=== PATIENT | male | born 1970 | race Caucasian/White ===

== ENCOUNTER 2022-06-28 13:06 | Inpatient (IN) | payer OTHER ==
[2022-06-28 14:00] VITALS: BMI 31.0
[2022-06-28] MEDS ORDERED: IBUPROFEN 600 MG TABLET (FP) PO PRN (14:39)
[2022-06-28] MEDS ORDERED: NALOXONE HCL (KLOXXADO) 8 MG SPRAY NS PRN (14:39)
[2022-06-28] MEDS ORDERED: IBUPROFEN 400 MG TABLET (FP) PO PRN (14:39)
[2022-06-28] MEDS ORDERED: MAGNESIUM HYDROX 2400MG/30ML ORAL SUSPENSION 30 ML CUP PO PRN (14:39)
[2022-06-28] MEDS ORDERED: LOPERAMIDE HCL 2 MG CAPSULE PO PRN (14:39)
[2022-06-28] MEDS ORDERED: BENZOCAINE/MENTHOL (CHLORASEPTIC ) LOZENGE MM PRN (14:39)
[2022-06-28] MEDS ORDERED: ACETAMINOPHEN 325 MG TABLET (FP) PO PRN ×2 (14:39)
[2022-06-28] MEDS ORDERED: MAG HYDROX/AL HYDROX/SIMETH 30 ML UNIT-DOSE CUP PO PRN (14:39)
[2022-06-28] MEDS ORDERED: ONDANSETRON *ODT* 4 MG TABLET SL PRN (14:39)
[2022-06-28] MEDS ORDERED: MAGNESIUM CITRATE 300 ML BOTTLE PO PRN (14:39)
[2022-06-28] MEDS ORDERED: DICYCLOMINE HCL 10 MG CAPSULE PO PRN (14:39)
[2022-06-28] MEDS: FOLIC ACID 1 MG TABLET (FP) PO SCH (15:18)
[2022-06-28] MEDS: METHOCARBAMOL 500 MG TABLET PO PRN ×2 (15:18→22:26)
[2022-06-28] MEDS: PRENATAL VITAMINS W/ FOLIC ACID TABLET (FP) PO SCH (15:19)
[2022-06-28] MEDS: NICOTINE 14 MG/24 HOURS TOPICAL PATCH TD SCH (15:19)
[2022-06-28] MEDS: diazePAM 5 MG TABLET PO SCH ×2 (17:37→22:26)
[2022-06-28] MEDS: metFORMIN HCL 500 MG TABLET (FP) PO SCH (17:37)
[2022-06-28] MEDS: BISMUTH SUBSALICYLATE 524 MG/30 ML PO PRN (17:40)
[2022-06-28] MEDS: diazePAM 5 MG TABLET PO PRN (20:34)
[2022-06-28] MEDS ORDERED: MELATONIN 5 MG TABLETS PO SCH (22:00)
[2022-06-28] MEDS: THIAMINE HCL 100 MG TABLET (FP) PO SCH (22:26)
[2022-06-29] MEDS: diazePAM 5 MG TABLET PO SCH ×4 (05:17→22:31)
[2022-06-29] MEDS: metFORMIN HCL 500 MG TABLET (FP) PO SCH ×2 (06:07→17:26)
[2022-06-29] MEDS: diazePAM 5 MG TABLET PO PRN ×3 (08:51→20:13)
[2022-06-29] MEDS: FOLIC ACID 1 MG TABLET (FP) PO SCH (10:09)
[2022-06-29] MEDS: PRENATAL VITAMINS W/ FOLIC ACID TABLET (FP) PO SCH (10:09)
[2022-06-29] MEDS: NICOTINE 10 MG CARTRIDGE (INHALER) IH PRN ×2 (10:10→17:29)
[2022-06-29] MEDS: NICOTINE 14 MG/24 HOURS TOPICAL PATCH TD SCH (10:10)
[2022-06-29 10:54] LABS: HEMATOCRIT 45.9 % (35.4-49); HEMOGLOBIN 15.7 GM/dL (11.7-16.9); MCH 33.1 pg (25.7-33.7); MCHC 34.2 g/dl (32.0-35.9); MEAN CELL VOLUME 96.8 fl (80-96); MEAN PLT VOLUME 7.4 fl (7.5-11.1); PLATELET COUNT 218 10^3/uL (134-434); RBC 4.74 M/mm3 (4.00-5.60); RDW 15.8 % (11.9-15.9); WHITE BLOOD COUNT 6.7 K/mm3 (4.0-10.0)
[2022-06-29 11:58] LABS: ALBUMIN 3.2 g/dl (3.4-5.0); BLOOD UREA NITROGEN 10.6 mg/dL (7-18)
[2022-06-29 12:01] LABS: CREATININE 0.7 mg/dL (0.55-1.3)
[2022-06-29 12:02] LABS: TOT PROT 6.6 g/dl (6.4-8.2)
[2022-06-29 12:03] LABS: BILIRUBIN,TOTAL 0.6 mg/dL (0.2-1)
[2022-06-29] MEDS: SUVOREXANT 10 MG TABLET PO PRN (22:29)
[2022-06-29] MEDS: METHOCARBAMOL 500 MG TABLET PO PRN (22:31)
[2022-06-29] MEDS: THIAMINE HCL 100 MG TABLET (FP) PO SCH (22:31)
[2022-06-30] MEDS: diazePAM 5 MG TABLET PO SCH ×3 (05:17→23:09)
[2022-06-30] MEDS: metFORMIN HCL 500 MG TABLET (FP) PO SCH ×2 (06:36→18:00)
[2022-06-30] MEDS: PRENATAL VITAMINS W/ FOLIC ACID TABLET (FP) PO SCH (10:05)
[2022-06-30] MEDS: diazePAM 5 MG TABLET PO PRN ×2 (10:05→18:02)
[2022-06-30] MEDS: METHOCARBAMOL 500 MG TABLET PO PRN (10:05)
[2022-06-30] MEDS: NICOTINE 14 MG/24 HOURS TOPICAL PATCH TD SCH (10:05)
[2022-06-30] MEDS: FOLIC ACID 1 MG TABLET (FP) PO SCH (10:05)
[2022-06-30] MEDS ORDERED: diphenhydrAMINE HCL 25 MG CAPSULE (FP) PO PRN (13:48)
[2022-06-30] MEDS ORDERED: diphenhydrAMINE HCL 25 MG CAPSULE (FP) PO ONE (14:30)
[2022-06-30] MEDS: THIAMINE HCL 100 MG TABLET (FP) PO SCH (23:09)
[2022-07-01] MEDS: diazePAM 5 MG TABLET PO SCH ×2 (05:49→17:29)
[2022-07-01] MEDS: metFORMIN HCL 500 MG TABLET (FP) PO SCH ×2 (06:55→17:28)
[2022-07-01] MEDS: NICOTINE 14 MG/24 HOURS TOPICAL PATCH TD SCH (10:28)
[2022-07-01] MEDS: diazePAM 5 MG TABLET PO PRN (10:29)
[2022-07-01] MEDS: FOLIC ACID 1 MG TABLET (FP) PO SCH (10:29)
[2022-07-01] MEDS: PRENATAL VITAMINS W/ FOLIC ACID TABLET (FP) PO SCH (10:29)
[2022-07-01] MEDS: NICOTINE 10 MG CARTRIDGE (INHALER) IH PRN (17:30)
[2022-07-01] MEDS: METHOCARBAMOL 500 MG TABLET PO PRN (22:28)
[2022-07-01] MEDS: THIAMINE HCL 100 MG TABLET (FP) PO SCH (22:28)
[2022-07-01] MEDS: BISMUTH SUBSALICYLATE 524 MG/30 ML PO PRN (22:28)
[2022-07-01] MEDS: SUVOREXANT 10 MG TABLET PO PRN (22:28)
[2022-07-02] MEDS ORDERED: diazePAM 5 MG TABLET PO ONE (06:00)
[2022-07-02] MEDS: metFORMIN HCL 500 MG TABLET (FP) PO SCH (06:12)
[2022-07-02] MEDS: METHOCARBAMOL 500 MG TABLET PO PRN (08:44)
[2022-07-02] MEDS: PRENATAL VITAMINS W/ FOLIC ACID TABLET (FP) PO SCH (10:29)
[2022-07-02] MEDS: NICOTINE 10 MG CARTRIDGE (INHALER) IH PRN (10:29)
[2022-07-02] MEDS: NICOTINE 14 MG/24 HOURS TOPICAL PATCH TD SCH (10:29)
[2022-07-02] MEDS: FOLIC ACID 1 MG TABLET (FP) PO SCH (10:29)
[2022-07-02 13:05] VITALS: BP 127/76; PULSE 90; RESP 18; TEMP 97.3
== END 2022-07-02 13:45 | disposition home or self-care (01) | DRG 775 ==
LOC: YASAS 13:06 → Y3N 14:38
PROVIDERS: ADMIT Allergy & Immunology; ATTEND Surgery
PROC: HZ2ZZZZ Detoxification Services for Substance Abuse Treatment (ICD-10-PCS; principal; 2022-06-28)
DX: F10.230 Alcohol dependence with withdrawal, uncomplicated (principal); F17.210 Nicotine dependence, cigarettes, uncomplicated; F32.A Depression, unspecified; F43.20 Adjustment disorder, unspecified; F43.10 Post-traumatic stress disorder, unspecified; E78.5 Hyperlipidemia, unspecified; E11.9 Type 2 diabetes mellitus without complications; Z79.84 Long term (current) use of oral hypoglycemic drugs; E66.9 Obesity, unspecified; Z68.31 Body mass index [BMI] 31.0-31.9, adult
CPT/HCPCS: 36415; 80053; 82947; 82962; 83036; 85027; 86780; C9803-CS; U0003; U0005

== ENCOUNTER 2025-05-04 17:16 | Inpatient (IN) | payer OTHER ==
[2025-05-04 17:36] VITALS: BMI 35.4
[2025-05-04] MEDS ORDERED: MAG HYDROX/AL HYDROX/SIMETH 30 ML UNIT-DOSE CUP PO PRN (17:44)
[2025-05-04] MEDS ORDERED: NALOXONE (NARCAN) HCL 4 MG/0.1 ML SPRAY NS PRN (17:44)
[2025-05-04] MEDS ORDERED: guaiFENesin 600 MG TABLET.ER (FP) PO PRN (17:44)
[2025-05-04] MEDS ORDERED: BISMUTH SUBSALICYLATE 524 MG/30 ML PO PRN (17:44)
[2025-05-04] MEDS ORDERED: BENZONATATE 200 MG CAPSULE PO PRN (17:44)
[2025-05-04] MEDS ORDERED: BENZOCAINE/MENTHOL (CHLORASEPTIC ) LOZENGE MM PRN (17:44)
[2025-05-04] MEDS ORDERED: IBUPROFEN 400 MG TABLET (FP) PO PRN (17:44)
[2025-05-04] MEDS ORDERED: MAGNESIUM HYDROX 2400MG/30ML ORAL SUSPENSION 30 ML CUP PO PRN (17:44)
[2025-05-04] MEDS ORDERED: POLYETHYLENE GLYCOL (HEALTHYLAX) 3350 17 GM PACKET PO PRN (17:44)
[2025-05-04] MEDS ORDERED: LOPERAMIDE HCL 2 MG CAPSULE PO PRN (17:44)
[2025-05-04] MEDS ORDERED: P-EPHED 60MG/TRIPROLIDI 2.5MG TABLET PO PRN (17:44)
[2025-05-04] MEDS ORDERED: METOPROLOL TARTRATE 25 MG TABLET (FP) ONE (18:19)
[2025-05-04] MEDS ORDERED: levETIRAcetam 500 MG TABLET (FP) PO ONE (18:19)
[2025-05-04] MEDS: METOPROLOL TARTRATE 50 MG TABLET (FP) PO ONE (18:23)
[2025-05-04] MEDS: levETIRAcetam 500 MG TABLET (FP) PO SCH (18:23)
[2025-05-04] MEDS: CEPHALEXIN MONOHYDRATE 500 MG CAPSULE (UD) PO SCH (20:30)
[2025-05-04] MEDS: THIAMINE 100 MG TABLET PO SCH (23:23)
[2025-05-04] MEDS: MELATONIN 5 MG TABLETS PO SCH (23:23)
[2025-05-05] MEDS: METHOCARBAMOL 500 MG TABLET PO PRN (06:15)
[2025-05-05] MEDS: ONDANSETRON *ODT* 4 MG TABLET SL PRN (06:15)
[2025-05-05] MEDS: PRENATAL VITAMINS W/ FOLIC ACID TABLET (FP) PO SCH (10:21)
[2025-05-05] MEDS: IBUPROFEN 600 MG TABLET (FP) PO PRN (10:22)
[2025-05-05 11:04] LABS: MCHC 33.5 g/dl (32.3-36.5); MEAN CELL VOLUME 97.0 fl (79.0-92.2); MEAN PLT VOLUME 10.3 fl (9.4-12.4); RDW 12.1 % (12.2-16.1)
[2025-05-05 11:23] LABS: GLUCOSE,RANDOM 256 mg/dL (74-106); TOT PROT 5.7 g/dl (6.4-8.2)
[2025-05-05 11:24] LABS: CO2 23 mmol/L (21-32)
[2025-05-05 11:26] LABS: ALK PHOS 172 U/L (40-150)
[2025-05-05 11:28] LABS: CREATININE 0.69 mg/dL (0.55-1.3); SGOT/AST 24 U/L (5-34); SGPT/ALT 20 U/L (0-55)
[2025-05-05] MEDS ORDERED: NICOTINE POLACRILEX 4 MG GUM BUC PRN (11:55)
[2025-05-05] MEDS: NICOTINE 21 MG/24 HOURS TOPICAL PATCH TD SCH (12:03)
[2025-05-06] MEDS: DICYCLOMINE HCL 10 MG CAPSULE PO PRN (01:34)
[2025-05-06] MEDS: TOLNAFTATE 1% CREAM 15 GM TUBE TP SCH (10:18)
[2025-05-06] MEDS: POVIDONE-IODINE 10% SOLN 118 ML BOTTLE TP ONE (12:20)
[2025-05-06] MEDS: INSULIN ASPART SLIDING SCALE (NOVOLOG) 1 VIAL SQ SCH (17:26)
[2025-05-07] MEDS ORDERED: INSULIN ASPART SLIDING SCALE (NOVOLOG) 1 VIAL SQ ONE (17:14)
[2025-05-07] MEDS: POVIDONE-IODINE OINTMENT 10% - 28.4 GM TUBE TP SCH (17:30)
[2025-05-07] MEDS: MELATONIN 5 MG TABLETS PO SCH (22:02)
[2025-05-07] MEDS: diphenhydrAMINE HCL 25 MG CAPSULE (FP) PO PRN (22:04)
[2025-05-08] MEDS ORDERED: INSULIN ASPART SLIDING SCALE (NOVOLOG) 1 VIAL SQ ONE ×2 (07:30→17:55)
[2025-05-09] MEDS ORDERED: INSULIN ASPART SLIDING SCALE (NOVOLOG) 1 VIAL SQ ONE ×2 (07:08→17:13)
[2025-05-09] MEDS: ACETAMINOPHEN 325 MG TABLET (FP) PO PRN (10:08)
[2025-05-09] MEDS: POVIDONE-IODINE 10% SOLN 118 ML BOTTLE TP SCH (15:19)
[2025-05-10] MEDS: INSULIN (NOVOLOG) ASPART 100 UNITS/ML 10ML VIAL SQ ONE (00:48)
[2025-05-10] MEDS ORDERED: INSULIN ASPART SLIDING SCALE (NOVOLOG) 1 VIAL SQ ONE ×2 (00:49→06:17)
[2025-05-10] MEDS ORDERED: INSULIN (NOVOLOG MIX 70/30) 100 UNITS/ML MDV SQ ONE (05:04)
[2025-05-10 14:13] VITALS: BP 123/86; PULSE 72; RESP 17; TEMP 96.8
== END 2025-05-10 14:40 | disposition home or self-care (01) | DRG 774 ==
LOC: YASAS 17:16 → Y6N 18:59
PROVIDERS: ADMIT Neuromusculoskeletal Medicine & OMM; ATTEND Counselor Addiction (Substance Use Disorder)
PROC: HZ2ZZZZ Detoxification Services for Substance Abuse Treatment (ICD-10-PCS; principal; 2025-05-04)
DX: F10.230 Alcohol dependence with withdrawal, uncomplicated (principal); F14.20 Cocaine dependence, uncomplicated; F12.20 Cannabis dependence, uncomplicated; F19.282 Other psychoactive substance dependence with psychoactive substance-induced sleep disorder; F19.280 Other psychoactive substance dependence with psychoactive substance-induced anxiety disorder; F19.24 Other psychoactive substance dependence with psychoactive substance-induced mood disorder; F43.10 Post-traumatic stress disorder, unspecified; I10 Essential (primary) hypertension; E11.9 Type 2 diabetes mellitus without complications; Z79.4 Long term (current) use of insulin; L03.115 Cellulitis of right lower limb; L03.116 Cellulitis of left lower limb; R26.89 Other abnormalities of gait and mobility; Z62.810 Personal history of physical and sexual abuse in childhood; Z91.410 Personal history of adult physical and sexual abuse; Z88.8 Allergy status to other drugs, medicaments and biological substances; Z87.891 Personal history of nicotine dependence; Z99.89 Dependence on other enabling machines and devices
CPT/HCPCS: 36415; 80053; 80305; 80307; 82962; 83036; 85027; 86780; 93005; 93010; Q0162